=== PATIENT | female | born 1970 | race Two or more races ===

== ENCOUNTER 2023-07-31 13:57 | Emergency (ER) | payer OTHER ==
[~2023-07-31] VITALS: Ht 162.6 cm; Wt 78.9 kg
[2023-07-31] MEDS ORDERED: LOSARTAN POTASS50 MG PO (14:25)
[2023-07-31] MEDS ORDERED: LIPITOR40 M1 (14:26)
[2023-07-31] MEDS ORDERED: METFORMIN HCL500 M3 PO (14:26)
[2023-07-31] MEDS ORDERED: DIPHENHYDRAMINE HCL 50 MG/ML VIAL 1ML IV STA (14:46)
[2023-07-31] MEDS ORDERED: ACETAMINOPHEN 500 MG GEL..CAP PO STA (14:46)
[2023-07-31] MEDS ORDERED: DEXAMETHASONE SODIUM PHOSPHATE 4 MG/ML VIAL IM STA (14:46)
[2023-07-31 16:05] LABS: HEMATOCRIT 39.4 % (36.0-45.00); HEMOGLOBIN 13.4 g/dL (12.0-15.00); MEAN CELL VOLUME 88.6 fL (80.00-100.00); MEAN CORPUSCULAR HGB CONC 33.9 g/dl (32.0-36.0); PLATELET COUNT 320 K/uL (150-450); RED BLOOD COUNT 4.45 M/uL (4.00-6.00); RED CELL DISTRIBUTION WIDTH 13.5 % (11.5-14.5)
[2023-07-31 16:39] LABS: BILIRUBIN TOTAL 0.32 mg/dL (0.3-1.2); CALCIUM 9.8 mg/dL (8.5-10.1); CREATININE SERUM 0.57 mg/dL (0.55-1.02); GFR 110.12; GLOBULINA 3.8 G/DL (2.4-3.5); POTASSIUM 3.89 mEq/L (3.5-5.1); TOTAL PROTEIN 7.8 gm/dL (6.4-8.2)
== END 2023-07-31 16:43 | disposition left against medical advice (07) ==
LOC: ER 13:57
PROVIDERS: General Practice
DX: R51.9 Headache, unspecified (principal); Z88.6 Allergy status to analgesic agent